=== PATIENT | male | born 1935 | race Caucasian/White ===

== ENCOUNTER 2020-04-05 10:55 | Day surgery (SDC) | payer MEDICARE, BC ==
[~2020-04-05] VITALS: Ht 172.7 cm; Wt 66.1 kg
[2020-04-05] VITALS (16 sets, daily range): BP systolic 119–168; BP diastolic 55–91
[2020-04-05] MEDS ORDERED: normal saline 1000ml 1,000 ML IV SCH (11:20)
[2020-04-05 11:58] LABS: BASOPHILS # (AUTO) 0.1 X10'3 (0-0.2); BASOPHILS % (AUTO) 0.9 % (0-1); EOSINOPHILS # (AUTO) 0.2 X10'3 (0-0.9); EOSINOPHILS % (AUTO) 2.2 % (0-6); HEMATOCRIT 38.2 % (42.0-52.0); LYMPHOCYTES # (AUTO) 1.9 X10'3 (1.1-4.8); LYMPHOCYTES % (AUTO) 23.1 % (21-51); MEAN CORPUSCULAR HGB CONC 34.1 g/dL (33.0-36.5); MEAN CORPUSCULAR VOLUME 93.7 FL (78-98); MEAN PLATELET VOLUME 7.9 FL (7.4-10.4); MONOCYTES # (AUTO) 0.9 X10'3 (0-0.9); MONOCYTES % (AUTO) 10.2 % (2-12); NEUTROPHILS # (AUTO) 5.3 X10'3 (1.8-7.7); NEUTROPHILS % (AUTO) 63.6 % (42-75); PLATELET COUNT 284 X10'3 (140-440); RED BLOOD COUNT 4.08 X10'6 (4.70-6.10); RED CELL DISTRIBUTION WIDTH 13.4 % (11.5-14.5); WHITE BLOOD COUNT 8.4 X10'3 (4.5-11.0)
[2020-04-05] MEDS ORDERED: ASPI81TA52 PO (12:20)
[2020-04-05] MEDS ORDERED: METO-539 PO (12:21)
[2020-04-05] MEDS ORDERED: POTA99TA25 PO (12:25)
[2020-04-05] MEDS ORDERED: PANT40TA54 PO (12:26)
[2020-04-05] MEDS ORDERED: LOVA40TA2 PO (12:26)
[2020-04-05] MEDS ORDERED: fentaNYL/PF 50MCG/1 ML 2ML syringe ONE (12:36)
[2020-04-05] MEDS ORDERED: midazolam 2 mg/2 ml injection ONE (12:36)
[2020-04-05] MEDS ORDERED: gelatin sponge, absorbable (Gelfoam 12-7MM) sponge TP ONE (12:41)
== END 2020-04-05 17:10 | disposition home or self-care (01) ==
LOC: SSTAY O 10:55
PROVIDERS: ATTEND Radiology Vascular & Interventional Radiology
DX: N18.3 Chronic kidney disease, stage 3 (moderate) (principal)
CPT/HCPCS: 36415; 50200; 77012; 85025; 87635; J2250; J3010; 99152; 99153